=== PATIENT | female | born 1955 | race Hispanic/Latino ===

== ENCOUNTER 2017-09-03 14:58 | Emergency (ER) | payer OTHER ==
[2017-09-03 15:06] VITALS: TEMP 97.9; O2SAT 98
--- NOTE | 2017-09-03 15:58 | RAD ---
HISTORY: syncope COMPARISON: No prior. FINDINGS: LUNGS: No active pulmonary disease. PLEURA: No significant pleural effusion identified, no pneumothorax apparent. CARDIOVASCULAR: Normal. OSSEOUS STRUCTURES: No significant abnormalities. VISUALIZED UPPER ABDOMEN: Normal. OTHER FINDINGS: None. IMPRESSION: No active disease.
--- NOTE | 2017-09-03 16:03 | ED PDOC ---
Syncope/Near Syncope/Dizziness Time Seen by Provider: 09/03/17 15:24 Chief Complaint (Nursing): Dizziness/Lightheaded Chief Complaint (Provider): Syncope History Per: Patient History/Exam Limitations: no limitations Onset/Duration Of Symptoms: Hrs Current Symptoms Are (Timing): Better Number Of Syncopal Episodes: 3 Activity At Onset Of Symptoms: Sitting Associated Symptoms Preceding Syncopal Episode: Lightheadedness Additional Complaint(s): 62 y/o female presents to the ED for evaluation following 3 witnessed syncopal episodes today. States she began feeling lightheaded while sitting at brunch, eating breakfast. Patient then had a syncopal episode where she fell from sitting. She then had 2 additional syncopal episodes prior to leaving the restaurant. Denies any chest pain or shortness of breath prior to syncope. Per daughter, patient briefly (a few secs) lost consciousness each time. Patient believes she may have hit the front of her face/nasal bridge, now complaining of mild pain to that site. Of note, patient reports a history of frequent syncopal episodes in her 20's-30' s which she was told was related to her low blood pressure and heat. Of note, patient has not fainted in 30+ years since then. She denies recent alcohol ingestion, but relates she drank 2 cups of coffee today. Currently patient reports feeling better, and lightheadedness has resolved. Denies any nausea, vomiting, or calf pain. PMD: Provider TBD Past Medical History Reviewed: Historical Data, Nursing Documentation, Vital Signs Vital Signs: Last Vital Signs Temp 97.9 F 09/03/17 15:03 Pulse 63 09/03/17 15:03 Resp 20 09/03/17 15:03 BP 94/60 L 09/03/17 15:03 Pulse Ox 98 09/03/17 15:03 - Family History Family History: States: Unknown Family Hx - Social History Alcohol: Social (but none today) Drugs: Denies - Allergies Allergies/Adverse Reactions: Allergies Allergy/AdvReac Type Severity Reaction Status Date / Time No Known Allergies Allergy Verified 09/03/17 15:03 Review of Systems ROS Statement: Except As Marked, All Systems Reviewed And Found Negative Constitutional: Negative for: Fever Cardiovascular: Negative for: Chest Pain Respiratory: Negative for: Shortness of Breath Gastrointestinal: Negative for: Nausea, Vomiting Musculoskeletal: Positive for: Other (mild pain to face/nose). Negative for: Neck Pain, Back Pain Neurological: Positive for: Dizziness, Other (syncope x3 with short LOC). Negative for: Weakness, Numbness, Incoordination, Change in Speech, Headache Physical Exam - Reviewed Nursing Documentation Reviewed: Yes Vital Signs Reviewed: Yes - Physical Exam Appears: Positive for: Well, Non-toxic, No Acute Distress Head Exam: Positive for: ATRAUMATIC, NORMAL INSPECTION (with no external signs of injury or trauma), NORMOCEPHALIC Skin: Positive for: Normal Color, Warm, Dry Eye Exam: Positive for: Normal appearance, EOMI, PERRL ENT: Positive for: Normal ENT Inspection Neck: Positive for: Normal, Painless ROM, Supple Cardiovascular/Chest: Positive for: Regular Rate, Rhythm. Negative for: Murmur Respiratory: Positive for: Normal Breath Sounds. Negative for: Accessory Muscle Use, Respiratory Distress Gastrointestinal/Abdominal: Positive for: Soft. Negative for: Tenderness, Distended Extremity: Positive for: Normal ROM, Capillary Refill (< 2 sec). Negative for: Pedal Edema, Calf Tenderness Neurologic/Psych: Positive for: Alert, c consultant II-XII (intact), Oriented (x3), Other (Strength is 5/5 throughout). Negative for: Motor/Sensory Deficits - ECG ECG: Positive for: Interpreted By Me, Viewed By Me Interpretation Of ECG: NSR at [address] changes in v3 and v4. Otherwise normal EKG O2 Sat by Pulse Oximetry: 98 (RA) Pulse Ox Interpretation: Normal - Radiology X-Ray: Viewed By Me, Read By Radiologist X-Ray Interpretation: No Acute Disease Medical Decision Making Medical Decision Making: Time: 15:44 Initial Plan: --CMP --Troponin I --CBC --Urinalysis --Chest x-ray --Repeat orthostatic BP measurement --Reevaluation 16:52 Patient is now refusing blood work.She agrees to sign out AMA Scribe Attestation: Documented by Norma Saeed, acting as a scribe for Alcira Ramos MD. Provider Scribe Attestation: All medical record entries made by the Scribe were at my direction and personally dictated by me. I have reviewed the chart and agree that the record accurately reflects my personal performance of the history, physical exam, medical decision making, and the department course for this patient. I have also personally directed, reviewed, and agree with the discharge instructions and disposition. Disposition - Clinical Impression Clinical Impression: Syncope - Patient ED Disposition Is Patient to be Admitted: No - Disposition Referrals: formerly [facility] [Outside] Disposition: Against Medical Advice Disposition Time: 17:00 Condition: STABLE Instructions: Syncope (Fainting) Forms: [facility] (Slovenian) Print Language: CROATIAN
[2017-09-03 17:22] VITALS: BP 156/97; PULSE 72; RESP 16
== END 2017-09-03 17:29 | disposition left against medical advice (07) ==
LOC: H.ER 14:58
DX: R55 Syncope and collapse (principal)